=== PATIENT | female | born 1960 | race Two or more races ===

== ENCOUNTER 2020-12-18 10:36 | Outpatient (CLI) | payer OTHER | END 2020-12-18 10:52 | disposition home or self-care (01) | LOC: RAD 10:36 | DX: J20.8 Acute bronchitis due to other specified organisms (principal); M25.561 Pain in right knee; M25.562 Pain in left knee ==

== ENCOUNTER 2021-02-04 03:45 | Inpatient (IN) | payer OTHER ==
[~2021-02-04] VITALS: Ht 160 cm; Wt 54.0 kg
[2021-02-04] MEDS ORDERED: LEVOTHYROXINE25 MCG (03:57)
== END 2021-02-05 15:53 | disposition home or self-care (01) | DRG 482 ==
LOC: ER 03:45 → SEC-K 15:52 → SURH 20:34
PROVIDERS: ADMIT Orthopaedic Surgery; ATTEND Orthopaedic Surgery
PROC: 0QS606Z Reposition Right Upper Femur with Intramedullary Internal Fixation Device, Open Approach (ICD-10-PCS; principal; 2021-02-04 17:00)
DX: S72.141A Displaced intertrochanteric fracture of right femur, initial encounter for closed fracture (principal); W18.30XA Fall on same level, unspecified, initial encounter; M81.8 Other osteoporosis without current pathological fracture; Z20.822 Contact with and (suspected) exposure to COVID-19

== ENCOUNTER 2021-04-08 11:14 | Outpatient (CLI) | payer OTHER ==
[~2021-04-08 11:14] MED LIST: LEVOTHYROXINE25 MCG
== END 2021-04-08 12:08 | disposition home or self-care (01) ==
LOC: LAB 11:14
PROVIDERS: ATTEND Physical Medicine & Rehabilitation
DX: S39.83XA Other specified injuries of pelvis, initial encounter (principal); M85.88 Other specified disorders of bone density and structure, other site; M84.459A Pathological fracture, hip, unspecified, initial encounter for fracture; E55.9 Vitamin D deficiency, unspecified

== ENCOUNTER → 2021-04-24 | Emergency (ER) | payer OTHER ==
[~2021-04-24] VITALS: Ht 160 cm; Wt 54.0 kg
== END | disposition left against medical advice (07) ==
LOC: ER 15:28
DX: N39.0 Urinary tract infection, site not specified (principal); Z53.29 Procedure and treatment not carried out because of patient's decision for other reasons

== ENCOUNTER 2021-06-16 11:23 | Outpatient (CLI) | payer OTHER | END 2021-06-16 11:44 | disposition home or self-care (01) | LOC: RAD 11:23 | PROVIDERS: ATTEND Physical Medicine & Rehabilitation | DX: M17.0 Bilateral primary osteoarthritis of knee (principal); M54.59 Other low back pain; M21.372 Foot drop, left foot ==

== ENCOUNTER 2023-01-27 13:38 | Outpatient (CLI) | payer OTHER | END 2023-01-31 13:20 | disposition home or self-care (01) | LOC: MRI 13:38 | PROVIDERS: ATTEND Physical Medicine & Rehabilitation | DX: M54.59 Other low back pain (principal); M54.16 Radiculopathy, lumbar region | CPT/HCPCS: 72148 ==

== ENCOUNTER 2023-04-03 22:47 | Emergency (ER) | payer OTHER ==
[~2023-04-03] VITALS: Ht 160 cm; Wt 44.0 kg
[2023-04-03] MEDS ORDERED: GLIPIZIDE ER10 MG PO (23:03)
[2023-04-03 23:45] LABS: HEMATOCRIT 40.8 % (36.0-45.00); HEMOGLOBIN 13.7 g/dL (12.0-15.00); MEAN CELL VOLUME 87.5 fL (80.00-100.00); MEAN CORPUSCULAR HEMOGLOBIN 29.3 pg (27.00-32.0); MEAN CORPUSCULAR HGB CONC 33.5 g/dl (32.0-36.0); PLATELET COUNT 164 K/uL (150-450); RED BLOOD COUNT 4.67 M/uL (4.00-6.00)
[2023-04-04 00:08] LABS: ALBUMIN 3.2 gm/dL (3.4-5.0); BILIRUBIN TOTAL 0.64 mg/dL (0.3-1.2); CREATININE SERUM 0.77 mg/dL (0.55-1.02); GFR 75.47; GLOBULINA 4.1 G/DL (2.4-3.5); POTASSIUM 3.37 mEq/L (3.5-5.1); TOTAL PROTEIN 7.3 gm/dL (6.4-8.2)
== END 2023-04-04 08:51 | disposition home or self-care (01) ==
LOC: ER 22:47
PROVIDERS: General Practice
DX: N20.1 Calculus of ureter (principal); K80.20 Calculus of gallbladder without cholecystitis without obstruction; Z88.6 Allergy status to analgesic agent; Z88.8 Allergy status to other drugs, medicaments and biological substances

== ENCOUNTER 2024-08-27 13:55 | Outpatient (CLI) | payer OTHER ==
[~2024-08-27 13:55] MED LIST changes: +GLIPIZIDE ER10 MG PO
== END 2024-08-27 14:02 | disposition home or self-care (01) ==
LOC: RAD 13:55
PROVIDERS: ATTEND Physical Medicine & Rehabilitation
DX: M25.551 Pain in right hip (principal); M54.50 Low back pain, unspecified; M17.11 Unilateral primary osteoarthritis, right knee; M25.561 Pain in right knee; W19.XXXA Unspecified fall, initial encounter

== ENCOUNTER 2024-10-18 10:55 | Outpatient (CLI) | payer OTHER | END 2024-10-18 10:57 | disposition home or self-care (01) | LOC: RAD 10:55 | PROVIDERS: ATTEND Internal Medicine Rheumatology | DX: M19.041 Primary osteoarthritis, right hand (principal); M19.042 Primary osteoarthritis, left hand ==

== ENCOUNTER 2024-12-09 10:47 | Outpatient (CLI) | payer OTHER | END 2024-12-09 10:48 | disposition home or self-care (01) | LOC: NUCLEAR 10:47 | PROVIDERS: ATTEND Internal Medicine Rheumatology | DX: M81.0 Age-related osteoporosis without current pathological fracture (principal) ==

== ENCOUNTER 2025-02-10 14:14 | Outpatient (CLI) | payer OTHER ==
[2025-02-10 14:59] LABS: URINE PROT QUANT 24HR 24.8 MG/DL
[2025-02-10 15:00] LABS: URINE PROT QUANT 24 HR 279.0 MG/24HR (42-225)
== END 2025-02-10 14:19 | disposition home or self-care (01) ==
LOC: LAB 14:14
PROVIDERS: ATTEND Internal Medicine
DX: N39.0 Urinary tract infection, site not specified (principal)

== ENCOUNTER 2025-02-24 12:12 | Outpatient (CLI) | payer OTHER | END 2025-02-24 12:16 | disposition home or self-care (01) | LOC: MAMO-SONO 12:12 | PROVIDERS: ATTEND Internal Medicine | DX: N64.4 Mastodynia (principal); R92.8 Other abnormal and inconclusive findings on diagnostic imaging of breast; R10.9 Unspecified abdominal pain; Z12.31 Encounter for screening mammogram for malignant neoplasm of breast ==